=== PATIENT | female | born 1960 | race Caucasian/White ===

== ENCOUNTER 2017-02-01 17:58 | Emergency (ER) | payer MEDICARE ==
--- NOTE | 2017-02-01 18:37 | EDM.PDOC ---
<Hema Morris - Last Filed: 02/01/17 18:46> ED HPI GENERAL MEDICAL PROBLEM - General Chief Complaint: Upper Extremity Injury/Pain Stated Complaint: left forearm and left leg pain Time Seen by Provider: 02/01/17 18:13 Source of Information: Reports: Patient History Limitations: Reports: No Limitations - History of Present Illness INITIAL COMMENTS - FREE TEXT/NARRATIVE: Patient states she has had left forearm pain for about 2 weeks. This pain is described as an ache that is fairly localized to the antecubital area only. This last week the front of her lower leg has started hurting in the area of her [place]. Pain does not improve with her regular prescription of hydrocodone. No fever, aches, chills, nausea, vomiting, chest pain. No dizziness, confusion , altered speech, unilateral weakness. She also complains of bilateral edema that has started over the last week or so. Has long history of mental health issues, chronic back pain. No other complaints. 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: Reports: Acetaminophen, Home Treatments, Other Medication(s) - Related Data Allergies Allergy/AdvReac Type Severity Reaction Status Date / Time aspirin Allergy Anaphylactic Verified 02/01/17 18:25 Shock azithromycin [From Zithromax] Allergy Abdominal Verified 02/01/17 18:25 Pain carbamazepine [From Tegretol] Allergy Cannot Verified 02/01/17 18:25 Remember ezetimibe [From Zetia] Allergy Cannot Verified 02/01/17 18:25 Remember risperidone Allergy Cannot Verified 02/01/17 18:25 Remember statins Allergy Abdominal Uncoded 02/01/17 18:25 Pain Home Meds: Home Meds ALPRAZolam [Xanax] 1 mg PO TID PRN 03/24/15 [History] Topiramate [Topamax] 100 mg PO BEDTIME 04/01/15 [History] Cyclobenzaprine [Flexeril] 10 mg PO TID PRN 04/12/16 [History] Hydrocodone/Acetaminophen [Hydrocodon-Acetaminophn 10-325] 1 tab PO Q4H PRN 11/22 [History] QUEtiapine Fumarate [Quetiapine Fumarate] 200 mg PO DAILY 07/20/16 [History] QUEtiapine Fumarate [Quetiapine Fumarate] 800 mg PO DAILY 07/20/16 [History] Escitalopram [Lexapro] 20 mg DAILY 02/01/17 [History] fluPHENAZine Decanoate [Fluphenazine Decanoate] 5 mg IJ DAILY 02/01/17 [History] Past Medical History Cardiovascular History: Reports: High Cholesterol Respiratory History: Reports: SOB Other Respiratory History: emphysemia Gastrointestinal History: Reports: Diverticulosis 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 - Past Surgical History Neurological Surgical History: Reports: Other (See Below) Musculoskeletal Surgical History: Reports: Shoulder Surgery Social & Family History - Tobacco Use Smoking Status *Q: Current Every Day Smoker Years of Tobacco use: 35 Packs/Tins Daily: 0.5 - Caffeine Use Caffeine Use: Reports: Coffee - Recreational Drug Use Recreational Drug Use: No Review of Systems - Review of Systems Review Of Systems: See Below Constitutional: Reports: No Symptoms Eyes: Reports: No Symptoms Ears: Reports: No Symptoms Nose: Reports: No Symptoms Mouth/Throat: Reports: No Symptoms Respiratory: Reports: Shortness of Breath (chronic and not worsening) Cardiovascular: Reports: No Symptoms, Edema (bilateral ankle) GI/Abdominal: Reports: No Symptoms Genitourinary: Reports: No Symptoms Musculoskeletal: Reports: Arm Pain, Leg Pain Skin: Reports: No Symptoms Neurological: Reports: No Symptoms Psychiatric: Reports: No Symptoms ED EXAM, GENERAL - Physical Exam Exam: See Below Exam Limited By: No Limitations General Appearance: Alert, WD/WN, No Apparent Distress Eye Exam: Bilateral Eye: EOMI, PERRL Ears: Normal TMs Throat/Mouth: Normal Inspection, Normal Oropharynx Head: Atraumatic, Normocephalic Neck: Normal Inspection, Supple, Non-Tender, Full Range of Motion Respiratory/Chest: No Respiratory Distress, Lungs Clear, Normal Breath Sounds, No Accessory Muscle Use, Chest Non-Tender Cardiovascular: Normal Peripheral Pulses, Regular Rate, Rhythm Peripheral Pulses: 2+: Posterior Tibial (L), Posterior Tibial (R), Dorsalis Pedis (L), Dorsalis Pedis (R) GI/Abdominal: Normal Bowel Sounds, Soft, Non-Tender, No Organomegaly Back Exam: Normal Inspection Extremities: Normal Inspection, Normal Range of Motion, Non-Tender, Pedal Edema (bilateral 1-2+) Neurological: Alert, Oriented, CN II-XII Intact, Normal Cognition, Normal Gait, Normal Reflexes, No Motor/Sensory Deficits Psychiatric: Normal Affect, Normal Mood Skin Exam: Warm, Dry, Intact Lymphatic: No Adenopathy Course - Vital Signs Text/Narrative:: Labs, ECG ordered. Adalid Sams to assume care of patient. Last Recorded V/S: Last Vital Signs Temp 36.6 C 02/01/17 18:15 Pulse 84 02/01/17 18:15 Resp 20 02/01/17 18:15 BP 144/84 H 02/01/17 18:15 Pulse Ox - Orders/Labs/Meds Orders: Active Orders 24 hr Category Date Time Status EKG Documentation Completion [RC] ROUTINE Care 02/01/17 18:37 Active Labs: Laboratory Tests 02/01/17 02/01/17 02/01/17 Range/Units 18:45 18:45 18:45 WBC 8.1 (4.0-10.0) x10^3/uL RBC 4.39 (4.00-5.50) x10^6/uL Hgb 13.5 (12.0-16.0) g/dL Hct 40.7 (33.0-47.0) % MCV 92.7 (78.0-93.0) fL MCH 30.8 (26.0-32.0) pg MCHC 33.2 (32.0-36.0) g/dL RDW Coeff of Santi 14.7 (10.0-15.0) % Plt Count 269 (130-400) x10^3/uL Neut % (Auto) 54.8 (50.0-80.0) % Lymph % (Auto) 35.3 (25.0-50.0) % [place] % (Auto) 7.8 (2.0-11.0) % Eos % (Auto) 1.7 (0.0-4.0) % Baso % (Auto) 0.4 (0.2-1.2) % PT 9.5 L (10.0-12.8) SEC INR 0.8 L (2.0-3.5) Sodium 140 (136-145) mmol/L Potassium 3.8 (3.5-5.1) mmol/L Chloride 104 (98-107) mmol/L Carbon Dioxide 27 (21-32) mmol/L BUN 12 (7-18) mg/dL Creatinine 1.2 H (0.55-1.02) mg/dL Est Cr Clr Drug Dosing 47.10 mL/min Estimated GFR (MDRD) 46 Glucose 105 (74-106) mg/dL Calcium 8.6 (8.5-10.1) mg/dL Corrected Calcium 8.76 (8.5-10.1) mg/dL Total Bilirubin 0.3 (0.2-1.0) mg/dL AST 18 (15-37) U/L ALT 38 (14-59) U/L Alkaline Phosphatase 127 H (46-116) U/L Creatine Kinase 118 (26-192) U/L Creatine Kinase Index 0.9 (0.0-4.0) % CK-MB (CK-2) 1.1 (0.0-3.6) ng/mL Troponin I < 0.017 (<=0.056) ng/mL C-Reactive Protein 2.4 H (<=0.9) mg/dL B-Natriuretic Peptide 50 (<=125) pg/mL Total Protein 7.5 (6.4-8.2) g/dL Albumin 3.8 (3.4-5.0) g/dL Globulin 3.7 Albumin/Globulin Ratio 1.03 Departure - Departure Disposition: Home, Self-Care 01 Clinical Impression: Leg pain, left Arm pain Qualifiers: Laterality: left Qualified Code(s): M79.602 - Pain in left arm - Discharge Information Forms: ED Department Discharge Additional Instructions: 1. Stay well hydrated and rest 2. Your labs and EKG were normal; no acute emergency found 3. Recommend following up with your Primary Care Provider to see if you need further testing and exams <Adalid Sams - Last Filed: 02/01/17 19:33> ED HPI GENERAL MEDICAL PROBLEM Left Arm Pain Score (Numeric/FACES): 5 EKG INTERPRETATION EKG Date: 02/01/17 Time: 18:53 Rhythm: NSR Rate (Beats/Min): 87 [place]: Normal P-Wave: Present QRS: RBBB ST-T: Normal QT: Normal GA/PQ Interval: 0.16 Comparison: NA - No Prior EKG EKG Interpretation Comments: 1. Sinus Rhythm 2. Incomplete RBBB Departure - Departure Time of Disposition: 19:30 Condition: Good - Problem List Review Problem List Initiated/Reviewed/Updated: Yes
[2017-02-01 18:49] VITALS: BP 144/84
[2017-02-01 19:23] LABS: CHLORIDE,CL 104 mmol/L (98-107); SODIUM,NA 140 mmol/L (136-145)
== END 2017-02-01 19:50 | disposition home or self-care (01) ==
LOC: VM.ED 17:58
DX: M79.632 Pain in left forearm (principal); E78.00 Pure hypercholesterolemia, unspecified; F41.9 Anxiety disorder, unspecified; F31.9 Bipolar disorder, unspecified; Z88.8 Allergy status to other drugs, medicaments and biological substances; Z88.1 Allergy status to other antibiotic agents; Z79.899 Other long term (current) drug therapy; M79.605 Pain in left leg; F32.9 Major depressive disorder, single episode, unspecified; Z85.828 Personal history of other malignant neoplasm of skin; F17.210 Nicotine dependence, cigarettes, uncomplicated; Z98.890 Other specified postprocedural states
CPT/HCPCS: 36415; 80053; 82550; 82553; 83880; 84484; 85025; 85610; 86140; 93005; 99282-GF; 99283

== ENCOUNTER 2019-06-13 20:55 | Emergency (ER) | payer MEDICARE, OTHER ==
[2019-06-13] MEDS ORDERED: Sodium Chloride 0.9% 1,000 ML IV ONE (21:00)
[2019-06-13] MEDS: Flumazenil 0.1 MG/ML 5 ML MDV IVPUSH PRN ×2 (21:05→21:11)
[2019-06-13] MEDS ORDERED: Flumazenil 0.1 MG/ML 5 ML MDV ONE ×2 (21:14→23:29)
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
[2019-06-13 22:46] LABS: BUPRENORPHINE,URINE NEGATIVE (NEGATIVE); MARIJUANA,URINE NEGATIVE (NEGATIVE); METHYLENEDIOXYMETHAMP,UR NEGATIVE (NEGATIVE); PHENCYCLIDINE,URINE NEGATIVE (NEGATIVE)
[2019-06-13 22:51] LABS: CHLORIDE,CL 109 mmol/L (54-184); SODIUM,NA 145 mmol/L (69-191)
[2019-06-13 23:15] LABS: ACETAMINOPHEN 0 ug/ml (10-30); ANION GAP 13.8 mmol/L (10-20)
[2019-06-14 00:25] VITALS: BP 142/81; PULSE 73
== END 2019-06-13 22:15 | disposition short-term general hospital (02) ==
LOC: VM.ED 20:55
DX: T42.4X2A Poisoning by benzodiazepines, intentional self-harm, initial encounter (principal); R41.82 Altered mental status, unspecified; R53.83 Other fatigue; F41.9 Anxiety disorder, unspecified; F31.9 Bipolar disorder, unspecified; J43.9 Emphysema, unspecified; Z86.59 Personal history of other mental and behavioral disorders; Z88.1 Allergy status to other antibiotic agents; Z88.8 Allergy status to other drugs, medicaments and biological substances; Z88.6 Allergy status to analgesic agent; Z79.899 Other long term (current) drug therapy
CPT/HCPCS: 36415; 80053; 80305; 80320; 80329; 85025; 93005; 93010; 96374; 99284; 99285; J3490; J7030; G0480

== ENCOUNTER 2019-07-09 13:53 | Emergency (ER) | payer OTHER ==
[2019-07-09 14:06] VITALS: BP 108/70; PULSE 90
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
== END 2019-07-09 14:15 | disposition home or self-care (01) ==
LOC: VM.ED 13:53
DX: M54.5 Low back pain (principal); E78.00 Pure hypercholesterolemia, unspecified; F17.210 Nicotine dependence, cigarettes, uncomplicated; Z88.6 Allergy status to analgesic agent; Z88.8 Allergy status to other drugs, medicaments and biological substances; Z79.899 Other long term (current) drug therapy; W01.0XXA Fall on same level from slipping, tripping and stumbling without subsequent striking against object, initial encounter
CPT/HCPCS: 99283

== ENCOUNTER 2019-08-07 19:22 | Emergency (ER) | payer OTHER ==
[2019-08-07] MEDS: Take Home: Acetaminophen/Codeine 300 MG/30 MG, 5 Tab Pack PO ONE (23:03)
[2019-08-07] MEDS: Take Home: Cyclobenzaprine 10 MG Tab, 4 Tab Pack PO ONE (23:03)
[2019-08-07] MEDS: Take Home: Amoxicillin/Clavulanate K 875-125 MG Tab, 2 Tab Pack PO ONE (23:03)
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
[2019-08-08 02:38] VITALS: BP 129/85; PULSE 77
--- NOTE | 2019-08-08 07:54 | CR ---
[id number] RAD/RAD Shoulder Right 2V Min EXAM: RAD Shoulder Right 2V Min CLINICAL DATA: TRAUMA COMPARISON: NO PREVIOUS SIMILAR EXAM IS AVAILABLE. FINDINGS: Degenerative changes are seen involving the acromioclavicular joint No fracture or dislocation is seen. There is no radiopaque foreign body in the soft tissues. There is no air in the soft tissues. There is no cortical thickening or periosteal reaction either. IMPRESSION: NO FRACTURE OR DISLOCATION Fox Najera MD 08/08/19 0753 Thank you for allowing us to participate in the care of your patient.
--- NOTE | 2019-08-08 07:58 | CT ---
[id number] CT/CT Cervical Spine WO IV Exam: CT Cervical Spine WO IV Clinical Data: TRAUMA COMPARISON: NO PREVIOUS SIMILAR EXAM IS AVAILABLE FINDINGS: Bilateral craniectomy changes are seen. Bilateral maxillary sinus air-fluid levels are also identified No fracture or subluxation is seen There is a normal variant of a torus palatinus There is evidence of centrilobular emphysema There are mild degenerative changes of the cervical spine Tiny nonspecific nodular changes are seen in the thyroid IMPRESSION: NO FRACTURE OR SUBLUXATION Fox Najera MD 08/08/19 0757 Thank you for allowing us to participate in the care of your patient.
== END 2019-08-07 23:09 | disposition home or self-care (01) ==
LOC: VM.ED 19:22
DX: S16.1XXA Strain of muscle, fascia and tendon at neck level, initial encounter (principal); S46.911A Strain of unspecified muscle, fascia and tendon at shoulder and upper arm level, right arm, initial encounter; F41.9 Anxiety disorder, unspecified; F32.9 Major depressive disorder, single episode, unspecified; Z79.899 Other long term (current) drug therapy; Z88.8 Allergy status to other drugs, medicaments and biological substances; Z88.1 Allergy status to other antibiotic agents; Z91.048 Other nonmedicinal substance allergy status; W00.0XXA Fall on same level due to ice and snow, initial encounter
CPT/HCPCS: 72125; 73030-RT; 99284-25; A9270-GY

== ENCOUNTER 2020-01-11 09:18 | Day surgery (SDC) | payer OTHER ==
[~2020-01-11 09:18] MED LIST: Sodium Chloride 0.9% 10 ML Syringe FLUSH PRN
[2020-01-11] MEDS ORDERED: Propofol 200 MG/20 ML SDV ONE (09:20)
[2020-01-11] MEDS ORDERED: fentaNYL 100 MCG/2 ML SDV ONE (09:20)
[2020-01-11] MEDS ORDERED: Lactated Ringers 1,000 ML IV SCH (09:30)
[2020-01-11 11:11] VITALS: BP 103/43; PULSE 72
--- NOTE | 2020-01-11 13:58 | OR ---
SURGERY DATE: 01/11/2020. REFERRING PROVIDER: ANJELICA Atkins. PRE-OPERATIVE DIAGNOSIS: Gastritis and gastroesophageal reflux. POST-OPERATIVE DIAGNOSIS: Mild diffuse gastritis, most prominent in the antrum. Cold biopsy x2 bites taken from antrum to check for path and H pylori. PROCEDURE: EGD with cold biopsy x1 site. SURGEON: Severiano Talbert M.D. ANESTHESIA: Monitored anesthesia care. Megha is a 59-year-old female who was brought to the endoscope suite after discussion of risks and benefits (including but not limited to reaction to medication, bleeding, infection, aspiration, perforation). Informed consent was obtained for monitored anesthesia care and esophagogastroduodenoscopy along with possible biopsy and/or dilatation. Pre-procedure exam including oral cavity was unremarkable. IV, oxygen, and monitors were placed. Patient was placed in the left lateral position and sedation was administered. A bite block was placed gently and scope lightly lubricated and passed through the bite block and over the tongue. Hypopharynx and vocal cords were visualized and unremarkable. Scope was passed through the cricopharynx and into the esophagus. The scope was then passed through the distal esophagus and the GE junction was visualized and photographed. The GE junction was unremarkable. Vocal cords were visualized and unremarkable. The scope was advanced into the stomach and gastric eckert was suctioned. Pylorus was identified and intubated and then the scope was advanced to the third portion of the duodenum. The second and third portions of the duodenum were unremarkable. The duodenal bulb was visualized and unremarkable. The scope was brought back into the stomach. The pylorus and the antrum were remarkable for mild gastritis with a few tiny/small areas of petechial hemorrhage. Cold biopsy x2 bites taken to check for path and H pylori. The scope was then retroflexed to visualize the angularis, fundus, body, and cardia. These were remarkable for some mild diffuse gastritis, but less prominent than the antrum. The stomach was desufflated of air and then the scope was slowly withdrawn. The esophagus was closely visualized during withdrawal all the way into the posterior pharynx and this was unremarkable. The patient tolerated the procedure well and went to recovery in stable condition. The patient was monitored until at baseline status. Findings and discharge instructions were reviewed and the patient was discharged in good condition. COMPLICATIONS: None. TOTAL TIME: 8 minutes. ESTIMATED BLOOD LOSS: About 1 mL. RECOMMENDATIONS/FOLLOW-UP: For the patient's symptomatic gastritis, we will start the patient on pantoprazole 40 mg twice a day for 2 weeks and then have her decrease to once daily thereafter. She can follow up with her PCP to determine response to this. I would like to kindly thank Jeff Robledo for this referral. DMB: 01/11/2020 11:05:24 MODL: 01/11/2020 11:44:44 /[id number]
== END 2020-01-11 12:00 | disposition home or self-care (01) ==
LOC: VM.SDS 09:18
PROVIDERS: ATTEND Family Medicine
DX: K29.50 Unspecified chronic gastritis without bleeding (principal); K21.9 Gastro-esophageal reflux disease without esophagitis; R53.82 Chronic fatigue, unspecified; F32.9 Major depressive disorder, single episode, unspecified; E78.5 Hyperlipidemia, unspecified; F41.9 Anxiety disorder, unspecified; F17.210 Nicotine dependence, cigarettes, uncomplicated; Z88.1 Allergy status to other antibiotic agents; Z88.8 Allergy status to other drugs, medicaments and biological substances; Z79.899 Other long term (current) drug therapy
CPT/HCPCS: 00731; 43239; J2704; J3010; J7120

== ENCOUNTER 2020-05-20 15:15 | Emergency (ER) | payer MEDICAID, OTHER ==
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
[2020-05-20 16:18] LABS: ACETAMINOPHEN 0 ug/ml (10-30); ANION GAP 11.8 mmol/L (10-20); CHLORIDE,CL 106 mmol/L (98-107); SODIUM,NA 140 mmol/L (136-145)
[2020-05-20] MEDS ORDERED: Flumazenil 0.1 MG/ML 5 ML MDV IVPUSH PRN (17:30)
[2020-05-20] MEDS: OLANZapine 10 MG Vial IM ONE (18:05)
[2020-05-20] MEDS: LORazepam 2 MG/ML SDV IVPUSH ONE (18:06)
[2020-05-20] MEDS: diphenhydrAMINE 50 MG/ML SDV IVPUSH ONE (18:31)
[2020-05-20 20:48] VITALS: BP 146/88; PULSE 90
== END 2020-05-20 20:30 | disposition short-term general hospital (02) ==
LOC: VM.ED 15:15
DX: T42.4X2A Poisoning by benzodiazepines, intentional self-harm, initial encounter (principal); T48.1X2A Poisoning by skeletal muscle relaxants [neuromuscular blocking agents], intentional self-harm, initial encounter; F31.12 Bipolar disorder, current episode manic without psychotic features, moderate; F41.9 Anxiety disorder, unspecified; Z88.8 Allergy status to other drugs, medicaments and biological substances; Z88.2 Allergy status to sulfonamides; Z88.1 Allergy status to other antibiotic agents; Z91.041 Radiographic dye allergy status; Z79.899 Other long term (current) drug therapy; Z90.710 Acquired absence of both cervix and uterus
CPT/HCPCS: 36415; 80053; 80307; 81001; 85025; 85610; 96372; 96374; 96375; 99284; 99285-25; J1200; J2060; J3490

== ENCOUNTER 2020-06-12 08:36 | Emergency (ER) | payer MEDICAID, MEDICARE ==
[2020-06-12] MEDS ORDERED: Ketorolac 30 MG/ML SDV IM ONE (09:42)
[2020-06-12] MEDS ORDERED: Orphenadrine 60 MG/2 ML Inj IM STA (09:42)
[2020-06-12] MEDS ORDERED: predniSONE 20 MG Tab PO ONE (09:43)
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
[2020-06-12] MEDS ORDERED: Promethazine 25 MG/ML SDV IM ONE (10:39)
[2020-06-12] MEDS ORDERED: HYDROmorphone 0.5 MG/0.5 ML Syringe IM ONE (10:39)
[2020-06-12] MEDS ORDERED: diphenhydrAMINE 50 MG/ML SDV IM ONE (10:53)
[2020-06-12 18:06] VITALS: BP 150/90; PULSE 73
== END 2020-06-12 11:45 | disposition home or self-care (01) ==
LOC: VM.ED 08:36
DX: M54.42 Lumbago with sciatica, left side (principal); M54.41 Lumbago with sciatica, right side; R56.9 Unspecified convulsions; Z79.899 Other long term (current) drug therapy; F31.9 Bipolar disorder, unspecified; F41.9 Anxiety disorder, unspecified; Z88.1 Allergy status to other antibiotic agents; Z88.6 Allergy status to analgesic agent; Z88.8 Allergy status to other drugs, medicaments and biological substances; Z88.2 Allergy status to sulfonamides
CPT/HCPCS: 96372; 99283; J1170; J1200; J1885; J2360; J7512; 99284

== ENCOUNTER 2020-07-22 10:13 | Emergency (ER) | payer MEDICAID ==
[2020-07-22] MEDS ORDERED: methylPREDNISolone Sodium Succinate 125 MG/2 ML SDV IM ONE (10:52)
[2020-07-22] MEDS ORDERED: Albuterol/Ipratropium 3.0-0.5 MG/3 ML Neb Soln NEB ONE (10:52)
[2020-07-22 10:55] VITALS: BP 165/96; PULSE 62
[2020-07-22] MEDS ORDERED: Sodium Chloride 0.9% 10 ML Syringe FLUSH PRN (11:04)
[2020-07-22] MEDS ORDERED: LORazepam 2 MG/ML SDV IVPUSH ONE (11:05)
--- NOTE | 2020-07-22 11:40 | CR ---
[id number] RAD/RAD Chest PA or AP 1V EXAM: FRONTAL CHEST INDICATION: SHORTNESS OF BREATH. COMPARISON: August 31, 2012. DISCUSSION: Linear opacities in both lung bases are nonspecific, but similar to the prior study and most suggestive of scarring. Hyperinflation suggests potential underlying COPD. No acute infiltrates are identified, but early changes could be obscured by the scarring the lung bases. Normal heart size. IMPRESSION: 1. Chronic bibasilar opacities, favor scarring. No definite acute findings. Kevin Richards MD 07/22/20 [id number] Thank you for allowing us to participate in the care of your patient.
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
[2020-07-22 11:44] LABS: CHLORIDE,CL 103 mmol/L (98-107); SODIUM,NA 139 mmol/L (136-145)
[2020-07-22 11:52] LABS: ANION GAP 20.4 mmol/L (10-20)
[2020-07-22 11:57] LABS: BARBITURATE SCREEN,URINE NEGATIVE (NEGATIVE); BENZODIAZEPINES SCREEN,URINE POSITIVE (NEGATIVE); EDDP,URINE SCREEN NEGATIVE (NEGATIVE); METHAMPHETAMINE SCREEN, URINE NEGATIVE (NEGATIVE); TCA SCREEN,URINE POSITIVE (NEGATIVE); THC SCREEN,URINE 50 NG/ML NEGATIVE (NEGATIVE)
--- NOTE | 2020-07-22 12:17 | CT ---
[id number] CT/CT Head WO IV EXAM: NONCONTRAST HEAD CT INDICATION: NEW ONSET SEIZURE ACTIVITY. COMPARISON: February 02, 2017. DISCUSSION: Mild generalized atrophy. Remote bilateral frontal craniotomies with aneurysm clips along the petrous apices bilaterally and vascular coils along the left anterior clinoid process. No acute hemorrhage, mass effect, midline shift, hydrocephalus or acute territorial infarct is identified. The facial bones and paranasal sinuses will be further detailed on a dedicated facial bone study. IMPRESSION: 1. No acute intracranial findings. Gabriel Liriano DO 07/22/20 [id number] Thank you for allowing us to participate in the care of your patient.
== END 2020-07-22 12:49 | disposition home or self-care (01) ==
LOC: SUPCPDRO 10:13 → VM.ED 10:13
DX: J44.1 Chronic obstructive pulmonary disease with (acute) exacerbation (principal); R56.9 Unspecified convulsions; F41.9 Anxiety disorder, unspecified; F31.9 Bipolar disorder, unspecified; Z90.710 Acquired absence of both cervix and uterus; Z88.8 Allergy status to other drugs, medicaments and biological substances; Z88.2 Allergy status to sulfonamides; Z88.1 Allergy status to other antibiotic agents; Z79.899 Other long term (current) drug therapy
CPT/HCPCS: 36415; 70450; 71045; 80053; 80305-QW; 80307; 81001; 83735; 84146; 84484; 85025; 85610; 86140; 93005; 93010; 96372; 96374; 99284; 99285-25; J2060; J2930; J7620-GY

== ENCOUNTER 2020-07-24 12:10 | Emergency (ER) | payer MEDICAID ==
[2020-07-24 12:25] VITALS: BP 139/81; PULSE 95
[2020-07-24] MEDS ORDERED: Sodium Chloride 0.9% 10 ML Syringe FLUSH PRN (12:44)
[2020-07-24] MEDS: Lactated Ringers 1,000 ML IV ONE (12:55)
[2020-07-24] MEDS: Orphenadrine 60 MG/2 ML Inj IV STA (12:59)
[2020-07-24 13:21] LABS: ANION GAP 13.3 mmol/L (10-20); CHLORIDE,CL 103 mmol/L (98-107); SODIUM,NA 137 mmol/L (136-145)
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
== END 2020-07-24 14:50 | disposition home or self-care (01) ==
LOC: VM.ED 12:10
DX: M62.830 Muscle spasm of back (principal); F31.9 Bipolar disorder, unspecified; F41.9 Anxiety disorder, unspecified; F17.210 Nicotine dependence, cigarettes, uncomplicated; Z88.6 Allergy status to analgesic agent; Z88.8 Allergy status to other drugs, medicaments and biological substances; Z88.2 Allergy status to sulfonamides; Z88.1 Allergy status to other antibiotic agents; Z79.899 Other long term (current) drug therapy
CPT/HCPCS: 80053; 81003; 81025; 82550; 83605; 83735; 85025; 86140; 96374; 99283-25; 99284; J2360; J7120

== ENCOUNTER 2020-08-28 21:19 | Emergency (ER) | payer MEDICAID, MEDICARE ==
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
[2020-08-28] MEDS: Take Home: Amoxicillin 500 MG Cap, 2 Cap Pack PO ONE (21:42)
[2020-08-29 02:40] VITALS: BP 147/89; PULSE 78
== END 2020-08-28 21:48 | disposition home or self-care (01) ==
LOC: VM.ED 21:19
DX: R68.84 Jaw pain (principal); Z88.2 Allergy status to sulfonamides; Z88.8 Allergy status to other drugs, medicaments and biological substances
CPT/HCPCS: 99283; 99284; A9270-GY

== ENCOUNTER 2020-12-16 12:41 | Emergency (ER) | payer MEDICAID ==
[2020-12-16] MEDS ORDERED: Sodium Chloride 0.9% 10 ML Syringe FLUSH PRN (12:59)
[2020-12-16 13:11] LABS: CHLORIDE,CL 105 mmol/L (98-107); PTT,PARTIAL THROMBOPLSTIN TIME 23.8 SEC (25.6-32.8); SODIUM,NA 141 mmol/L (136-145)
[2020-12-16 13:12] LABS: ANION GAP 18.8 mmol/L (5-15)
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
[2020-12-16 13:31] LABS: ACETAMINOPHEN 0 ug/ml (10-30)
--- NOTE | 2020-12-16 14:06 | CR ---
[id number] RAD/RAD Chest PA or AP 1V EXAM: FRONTAL CHEST INDICATION: TRAUMA. COMPARISON: July 22, 2020. DISCUSSION: The lungs are hypoinflated with mild central vascular crowding and basilar atelectasis. Heart is normal in size. No pleural effusion or pneumothorax. IMPRESSION: 1. Low lung volumes. Kevin Richards MD 12/16/20 [id number] Thank you for allowing us to participate in the care of your patient.
== END 2020-12-16 13:10 | disposition short-term general hospital (02) ==
LOC: VM.ED 12:41
DX: S31.119A Laceration without foreign body of abdominal wall, unspecified quadrant without penetration into peritoneal cavity, initial encounter (principal); Z87.891 Personal history of nicotine dependence; Z88.8 Allergy status to other drugs, medicaments and biological substances; Z88.5 Allergy status to narcotic agent; Z88.1 Allergy status to other antibiotic agents; X78.9XXA Intentional self-harm by unspecified sharp object, initial encounter
CPT/HCPCS: 36415; 71045; 80048; 80143; 80307; 83735; 85025; 85610; 85730; 86140; 93005; 93010; 99284; 99285-25

== ENCOUNTER 2021-04-03 19:03 | Emergency (ER) | payer OTHER, MEDICAID ==
[2021-04-03 19:39] VITALS: BP 140/89; PULSE 88
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
--- NOTE | 2021-04-03 20:03 | CR ---
[id number] RAD/RAD Ankle Right 3V Min Exam: RAD Ankle Right 3V Min Indication:TRAUMA Comparison: No prior imaging for comparison. Discussion/Impression: Bones in normal alignment. No fracture, AVN, or erosive changes. Joint spaces are well-preserved. Bone mineralization is normal. Achilles tendon and plantar fascia enthesopathy at their calcaneal attachments. Pablo Garcia MD 04/03/212002 Thank you for allowing us to participate in the care of your patient.
== END 2021-04-03 20:17 | disposition home or self-care (01) ==
LOC: VM.ED 19:03
DX: S90.01XA Contusion of right ankle, initial encounter (principal); E78.00 Pure hypercholesterolemia, unspecified; Z88.8 Allergy status to other drugs, medicaments and biological substances; Z88.5 Allergy status to narcotic agent; Z88.1 Allergy status to other antibiotic agents; W20.8XXA Other cause of strike by thrown, projected or falling object, initial encounter; Y99.0 Civilian activity done for income or pay
CPT/HCPCS: 73610-RT; 99283; 99283-25

== ENCOUNTER 2021-06-20 16:48 | Observation (INO) | payer MEDICARE, MEDICAID ==
[2021-06-20] MEDS: Sodium Chloride 0.9% 1,000 ML IV SCH ×2 (16:55→21:25)
[2021-06-20] MEDS ORDERED: Flumazenil 0.1 MG/ML 5 ML MDV IVPUSH ONE (17:23)
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
[2021-06-20 17:57] LABS: BARBITURATE SCREEN,URINE NEGATIVE (NEGATIVE); BUPRENORPHINE SCREEN,URINE NEGATIVE (NEGATIVE)
[2021-06-20 17:58] LABS: BENZODIAZEPINES SCREEN,URINE POSITIVE (NEGATIVE); METHAMPHETAMINE SCREEN, URINE POSITIVE (NEGATIVE); THC SCREEN,URINE 50 NG/ML NEGATIVE (NEGATIVE)
[2021-06-20 18:00] LABS: CHLORIDE,CL 107 mmol/L (98-107); SODIUM,NA 145 mmol/L (136-145)
[2021-06-20 18:01] LABS: ANION GAP 14.3 mmol/L (5-15)
[2021-06-20] MEDS ORDERED: Ondansetron 4 MG/2 ML SDV IV PRN (18:47)
[2021-06-20] MEDS ORDERED: Acetaminophen 325 MG Tab PO PRN (18:47)
[2021-06-20] MEDS ORDERED: Sodium Chloride 0.9% 10 ML Syringe FLUSH PRN (18:47)
[2021-06-20] MEDS ORDERED: Flumazenil 0.1 MG/ML 5 ML MDV ONE (23:46)
[2021-06-21] MEDS: Sodium Chloride 0.9% 1,000 ML IV SCH ×2 (03:54→09:19)
[2021-06-21 08:48] LABS: ANION GAP 12.9 mmol/L (5-15)
[2021-06-21] MEDS ORDERED: Enoxaparin 40 MG/0.4 ML Syringe SUBCUT SCH (12:00)
[2021-06-21 13:51] VITALS: BP 117/51; PULSE 90
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
== END 2021-06-21 16:05 ==
LOC: VM.ED 16:48 → VM.MS 18:08
PROVIDERS: ADMIT Physician Assistant Medical; ATTEND Physician Assistant Medical
DX: T42.4X2A Poisoning by benzodiazepines, intentional self-harm, initial encounter (principal); E78.00 Pure hypercholesterolemia, unspecified; R41.82 Altered mental status, unspecified; K21.9 Gastro-esophageal reflux disease without esophagitis; E55.9 Vitamin D deficiency, unspecified; Z88.8 Allergy status to other drugs, medicaments and biological substances; Z88.2 Allergy status to sulfonamides; Z79.899 Other long term (current) drug therapy; Z20.822 Contact with and (suspected) exposure to COVID-19
CPT/HCPCS: 36415; 80048; 80053; 80305; 81001; 85025; 86140; 93005; 96372; 96374; 99285; G0378; J1650; J3490; J7030; U0002

== ENCOUNTER 2021-12-23 21:04 | Emergency (ER) | payer MEDICAID, MEDICARE ==
[2021-12-23 21:43] LABS: PCO2 ARTERIAL,POC 41 mmHg (35-48)
[2021-12-23 21:58] LABS: ACETAMINOPHEN 31 ug/ml (10-30); ANION GAP 20.5 mmol/L (5-15); CHLORIDE,CL 103 mmol/L (98-107); SODIUM,NA 143 mmol/L (136-145)
[2021-12-23] MEDS ORDERED: Rocuronium 50 MG/5 ML Vial ONE (22:14)
[2021-12-23] MEDS ORDERED: Succinylcholine 200 MG/10 ML MDV ONE (22:14)
[2021-12-24 00:22] LABS: BARBITURATE SCREEN,URINE NEGATIVE (NEGATIVE); BENZODIAZEPINES SCREEN,URINE NEGATIVE (NEGATIVE); METHAMPHETAMINE SCREEN, URINE NEGATIVE (NEGATIVE); THC SCREEN,URINE 50 NG/ML NEGATIVE (NEGATIVE)
[2021-12-24 00:23] LABS: BUPRENORPHINE SCREEN,URINE NEGATIVE (NEGATIVE)
[2021-12-24] MEDS ORDERED: Etomidate 2 MG/ML 10 ML SDV ONE (01:05)
[2021-12-24 06:54] VITALS: BP 100/58; PULSE 110
== END 2021-12-24 00:30 | disposition short-term general hospital (02) ==
LOC: VM.ED 21:04
DX: T50.911A Poisoning by multiple unspecified drugs, medicaments and biological substances, accidental (unintentional), initial encounter (principal); G93.89 Other specified disorders of brain; Z79.899 Other long term (current) drug therapy; Z88.6 Allergy status to analgesic agent; Z88.8 Allergy status to other drugs, medicaments and biological substances; Z88.2 Allergy status to sulfonamides; Z88.1 Allergy status to other antibiotic agents
CPT/HCPCS: 31500; 36600; 43752; 71045; 80053; 80143; 80179; 80305; 80307; 82803; 85025; 85610; 99291; 99292; J0330; J3490